=== PATIENT | male | born 1990 | race Caucasian/White ===

== ENCOUNTER 2020-05-22 17:53 | Emergency (ER) | payer SELFPAY ==
[~2020-05-22] VITALS: Ht 172.7 cm; Wt 94.3 kg
[2020-05-22 18:11] VITALS: Ht 172.7 cm; Wt 94.3 kg
[2020-05-22 19:53] VITALS: BP 142/93
== END 2020-05-22 19:53 | disposition home or self-care (01) ==
LOC: ED 17:53
DX: S93.401A Sprain of unspecified ligament of right ankle, initial encounter (principal); S90.31XA Contusion of right foot, initial encounter; W20.8XXA Other cause of strike by thrown, projected or falling object, initial encounter; Y93.89 Activity, other specified; Y92.89 Other specified places as the place of occurrence of the external cause; Y99.8 Other external cause status